=== PATIENT | male | born 1965 | race Caucasian/White ===

== ENCOUNTER 2024-03-23 06:17 | Day surgery (SDC) | payer OTHER, SELFPAY ==
[2024-03-23 09:36] VITALS: BMI 46.3
[2024-03-23 09:37] VITALS: BP 107/69; BMI 46.3
[2024-03-23 10:42] VITALS: BP 104/64
[2024-03-23 10:45] VITALS: BP 103/66
[2024-03-23 11:00] VITALS: BP 105/80
[2024-03-23 11:08] VITALS: BP 107/72
== END 2024-03-23 11:15 | disposition home or self-care (01) ==
LOC: SDS 06:17
PROVIDERS: ATTENDING PHYSICIAN Specialist
DX: K22.70 Barrett's esophagus without dysplasia (principal); K31.7 Polyp of stomach and duodenum
CPT/HCPCS: 43239; 88305

== ENCOUNTER → 2024-03-23 08:12 | Outpatient (REF) | payer OTHER, SELFPAY | LOC: RAD 08:12 | PROVIDERS: ATTENDING PHYSICIAN Family Medicine | DX: R51.9 Headache, unspecified (principal); E29.1 Testicular hypofunction; K21.9 Gastro-esophageal reflux disease without esophagitis; E66.01 Morbid (severe) obesity due to excess calories | CPT/HCPCS: 88305; 72052 ==

== ENCOUNTER 2025-05-22 11:51 | Emergency (ER) | payer OTHER, SELFPAY ==
[2025-05-22 11:54] VITALS: BP 156/92
[2025-05-22 12:17] VITALS: BMI 44.9
--- NOTE | 2025-05-22 12:25 | ED.GENMED ---
History of Present Illness
General
Chief Complaint: Abdominal Symptoms
Source: patient
Exam Limitations: none
Time Seen by Provider: 05/22/25 12:03
Nursing documentation reviewed up to this point in time: agreed with
History of Present Illness
History of Present Illness:
see MDM
Past History
Past History
ED Past Medical History: Cancer (Testicular cancer)
ED Past Surgical History: Appendectomy and Other (right ochiectomy )
Social History
Tobacco: Non-smoker
Alcohol: None
Drug: None
Personal:
Living: with family
Employment: Employed
Family History
Family History: Hypertension
Review of Systems
Review of Systems
Allergies reviewed?: Yes
All Other Systems: Not applicable
Phy Exam
Physical Exam
Physical Exam:
see MDM
Course
Orders/Labs/Results
Orders:
Orders
05/22/25 13:01
CT Abd/Pel (IV only)-[facility] only Urgent
Comment: h/o testicular ca; divertoic
Reason For Exam: lower abd pain, constipation, pressure
05/22/25 13:06
Complete Blood Count/With Diff Urgent
Comprehensive Metabolic Panel Urgent
Lipase Urgent
Urinalysis Reflex To Culture Urgent
Date Specimen was Collected: 05/22/25
Time Specimen was Collected: 13:05
Abnormal Lab Results
05/22/25
13:06
RDW 14.7 H %
(11.5-14.5)
MPV 11.4 H fL
(7.4-10.4)
Absolute Lymphs (auto) 1.0 L 10^3/uL
(1.2-3.4)
Immature Gran % 0.7 H %
(0-0.5)
Lymphocytes % 18.2 L %
(20.5-51.1)
Glucose 121 H mg/dl
(70-99)
05/22/25 13:06
05/22/25 13:06
Vital Signs
Initial and Last Documented VS:
Initial Vital Signs
Temp Pulse Resp BP Pulse Ox
36.7 C 88 18 156/92 98
05/22/25 11:54 05/22/25 11:54 05/22/25 11:54 05/22/25 11:54 05/22/25 11:54
Last Documented Vital Signs
Temp Pulse Resp BP Pulse Ox
36.7 C 88 18 141/89 99
05/22/25 11:54 05/22/25 11:54 05/22/25 11:54 05/22/25 15:57 05/22/25 15:57
MDM/Problems Addressed
Differential Diagnosis Includes:
see MDM
MDM/Problems Addressed:
Note:
CHIEF COMPLAINT(S)
Persistent lower abdominal pain and pressure with associated constipation.
HISTORY OF PRESENT ILLNESS
The patient is a 60-year-old male who presents with a chief complaint of lower abdominal discomfort, which he describes as a consistent pressure and pain radiating throughout the abdominal region. These symptoms began a few months ago and have
persisted. The patient notes that the discomfort worsens in the morning and is accompanied by a sensation of needing to defecate frequently, although he is often unable to. He mentions urinating but experiencing continued pain and pressure but he
does feel like he urinates fully most of the time; he also just saw a urologist, psa normal and no findings of retention.
The patient previously started a GLP-1 agonist approximately four months ago but discontinued it after two months due to constipation and other issues. Despite cessation, the abdominal pressure and pain have persisted for two additional months. He
reports using suppositories and prune juice for relief, which allow for bowel movements, though they remain abnormal in frequency and consistency.
There is no blood in the stool, but he describes stools as being small and pellet-like. The patient does not report any nausea, vomiting, fever, weight loss, rash, skin changes, or episodes suggesting bowel obstruction. He denies any recent
radiation therapy or surgeries beyond his testicular cancer treatment.
garett has tried metamucil, suppositorites, occ miralax for constipation.
he feels the pain is mostly wrapping from R low back around to RLQ
no testicular swelling/pain,
PAST MEDICAL AND SURIGICAL HISTORY
- History of testicular cancer diagnosed in 1998, with subsequent orchiectomy.
- No reported chemotherapy or radiotherapy for testicular cancer.
- Possible history of diverticulosis, although the patient is unfamiliar with this diagnosis.
CHRONIC MEDICAL CONDITIONS SIGNIFICANTLY AFFECTING CARE
History of testicular cancer.
REVIEW OF SYSTEMS
- Gastrointestinal: Lower abdominal pain and pressure; constipation with small pellet-like stools.
- Urinary: Sensation of incomplete bladder emptying, frequent need to urinate.
- General: No blood in stool, no chills, no fevers, no weight loss reported.
PHYSICAL EXAM
GENERAL: Alert , in no apparent distress
EYE: pupils equal and reactive
NECK: Supple
ENT: o/p clr, mmm.
CARDIAC: Regular rate and rhythm .
LUNGS: Clear breath sounds bilaterally, no acute respiratory distress, no wheezes/rales/rhonchi
ABDOMEN: Soft, without focal tenderness, no r/g, no cvat, normal bowel sounds
Rectal: Small external nonbleeding bleeding hemorrhoid, no rectal tenderness, no fecal impaction
NEUROLOGICAL: Alert and oriented, no focal neuro deficits
SKIN: Warm and dry, skin intact.
MUSCULOSKELETAL: No edema, well perfused. neg seema's sign
PSYCH: Normal and appropriate interaction.
PROBLEM LIST
- Acute: Lower abdominal pain and pressure
- Possible chronic: History of constipation
PLAN
- Consider performing a rectal exam to check for obstructive stool presence.
- Obtain a computed tomography scan of the abdomen to evaluate for potential bowel obstruction or other abdominal pathology given the patients history of cancer and current symptoms.
DIFFERENTIAL DIAGNOSIS
The Differential Diagnosis includes, in no particular order and is not limited to:
1. Colon cancer
2. Diverticulitis
3. Irritable bowel syndrome
4. Bowel obstruction
5. Chronic constipation
6. Bladder dysfunction
7. Abdominal adhesions
8. Renal colic
9. Gastrointestinal infection
10. Abdominal hernia
Prostatitis
UTI
60 y/o M
h/o testicular cancer and 1 retroperitonteal Lymph node
treated with chemo and surgery years aog
having months of lower abd pressure
seems to be wrapping from back to right lower abd and then across
feels urge to defecate and feels constipated
no vomiting, able to eat, able to urinate
saw uro and no findings
started GLP 1 before this started so he stopped it but pain persists
here becuase he feels that he needs some testing and called pcp who meir dhim to come in
no pain down legs
no wekaness/numbness
on exam pt is comfortable, well appearing, nontender, no fecal impaction, no perineal changes
labs unremarkable
ct nonspecific findings , copy of report
nothing to explain pain
suspect either mild constipation/IBS vs. MSK back pain/raciulopathy causes
start with bentyl and miralax and if neg then needs additional w/u
also consider GI.
*Pulse Oximetry
SaO2: 98
Oxygen Mode of Delivery: Room air
Patient hypoxic: no (99)
*Critical Care Note
Total Time (30-74mins, 75-104mins- exclusive of procedures): Not Applicable
ED Attending Note
-
Portions of this chart may have been created with voice recognition software.� Occasional wrong word or��sound alike� substitutions may have occurred due to the inherent limitations of voice recognition software.
Discharge Plan
Departure
Patient Disposition: Home (Routine Discharge)
Date of Disposition: 05/22/25
Time of Disposition: 15:39
Patient with high blood pressure during this ER visit?: Yes
Condition: Fair
Covid-19: Not Applicable
Discharge Problem:
Abdominal pain
Instructions: Constipation, Adult (DC), Abdominal Pain
Prescriptions:
New
dicyclomine 20 mg tablet
20 mg PO TID PRN (Reason: abdominal pain) Qty: 15 0RF
No Action
Advil
2 tab PO PRN PRN (Reason: FERGUSON)
multivitamin 1 EACH tablet
1 ea PO DAILY
sykpyorjngc-skmxiflln-fph C-Mn 1 TAB tablet
1 tab PO DAILY
omeprazole [Prilosec] 40 MG capsule,delayed release(DR/EC)
40 mg PO DAILY
TESTOSTERONE
1 dose topical DAILY
Patient Comments:
cream
fluticasone propionate 1 SPRAY spray,suspension
2 spray intranasal DAILY
Low-Dose Aspirin 81 mg Tablet
81 mg PO DAILY
metoprolol succinate
1 tab PO DAILY
rosuvastatin
1 tab PO DAILY
Referrals:
Zane Wade MD [Active, Gastroenterology] - Follow up in 10 days
Mina Rainey MD [Family Provider, Family Practice] - Follow up in 2-3 days
Activity Restrictions/Additional Instructions:
We are not sure the cause of your discomfort. Your CAT scan was very reassuring, your urinalysis is normal. It sounds as if he just had urology consultation which was unremarkable. It is probably reasonable to consider a GI appointment
In the meantime you could try MiraLAX twice a day for 3 days to see if that helps.
Return to the ER for rectal bleeding, severe pain, fever, vomiting etc.
you can try bentyl every 8 hours for pain as needed
Interventions
Interventions:
*Risk Screen - Suicide Last Done: 05/22/25 11:54
*General Assessment Last Done: 05/22/25 11:54
*Neglect/Abuse Screening Last Done: 05/22/25 11:54
*ED- Fall Risk Assessment Last Done: 05/22/25 12:17
*ED COVID-19 Vaccine History Last Done: 05/22/25 12:17
*Nursing Disposition Last Done: 05/22/25 15:57
FX-Rmtpqf-Yqrdycjlqi Assessment Last Done: 05/22/25 12:17
Discharge Date and Time
Discharge Date/Time: 05/22/25 15:58
Print Language: CROATIAN
[2025-05-22 13:19] LABS: Hematocrit 43.2 % (39.0-52.0); Hemoglobin 14.3 g/dL (13.0-18.0); Mean Corp Hgb Conc. 33.1 g/dL (33.0-37.0); Mean Corpuscular Volume 88.3 fL (80.0-94.0); Nucleated Red Blood Cells % 0 % (-); Platelet Count 165 10^3/uL (130-400); Red Cell Dist. Width 14.7 % (11.5-14.5)
[2025-05-22 13:29] LABS: Urine Character Clear (Clear)
[2025-05-22 13:39] LABS: ALT (SGPT) 34 U/L (0-50); AST (SGOT) 31 U/L (17-59); Albumin 4.4 g/dl (3.5-5.0); Alkaline Phosphatase 70 U/L (38-126); Blood Urea Nitrogen 12 mg/dl (9-20); Calcium 9.2 mg/dl (8.4-10.2); Carbon Dioxide 29 mmol/L (22-30); Chloride 105 mmol/L (98-107); Estimated Creatinine Clearance 109 ml/min; Glucose 121 mg/dl (70-99); Lipase 62 U/L (23-300); Potassium 4.5 mmol/L (3.5-5.1); Sodium 141 mmol/L (135-145); Total Protein 7.4 g/dl (6.3-8.2); eGFR > 60.00
[2025-05-22 15:57] VITALS: BP 141/89
== END 2025-05-22 15:58 | disposition home or self-care (01) ==
LOC: EMR 11:51
PROVIDERS: Physician Assistant; EMERGENCY PHYSICIAN Student in an Organized Health Care Education/Training Program; FAMILY PHYSICIAN Family Medicine
DX: R10.30 Lower abdominal pain, unspecified (principal); I25.10 Atherosclerotic heart disease of native coronary artery without angina pectoris; K59.00 Constipation, unspecified; Z82.49 Family history of ischemic heart disease and other diseases of the circulatory system; Z85.47 Personal history of malignant neoplasm of testis; Z90.49 Acquired absence of other specified parts of digestive tract
CPT/HCPCS: 99284; 74177; 80053; 81003; 83690; 85025; Q9967

== ENCOUNTER → 2025-07-26 07:05 | Outpatient (REF) | payer OTHER, SELFPAY | LOC: MRI 07:05 | PROVIDERS: ATTENDING PHYSICIAN Pain Medicine Interventional Pain Medicine; FAMILY PHYSICIAN Family Medicine | DX: M54.16 Radiculopathy, lumbar region (principal) | CPT/HCPCS: 72148 ==